=== PATIENT | male | born 1990 | race Caucasian/White ===

== ENCOUNTER 2018-04-04 08:29 | Emergency (ER) | payer SELFPAY ==
[2018-04-04] MEDS ORDERED: MECLIZINE HCL 25 MG TABLET PO ONE (09:05)
[2018-04-04] MEDS ORDERED: NORMAL SALINE 1000 ML 1,000 ML IV ONE (09:05)
[2018-04-04 10:33] LABS: ABSOLUTE BASOPHILS # (AUTO) 0.1 10^3/uL (0.0-0.2); ABSOLUTE EOSINOPHILS # (AUTO) 0.1 10^3/uL (0.0-0.6); ABSOLUTE LYMPHOCYTES (AUTO) 0.7 10^3/uL (0.5-4.7); ABSOLUTE MONOCYTES (AUTO) 0.6 10^3/uL (0.1-1.4); ABSOLUTE NEUT (AUTO) 5.2 10^3/uL (1.7-8.2); BASOPHILS % (AUTO) 1.9 % (0-2); HEMATOCRIT 41.4 % (37.9-51.0); HEMOGLOBIN 14.6 g/dL (13.5-17.0); LYMPHOCYTES % (AUTO) 10.8 % (13-45); MEAN CORPUSCULAR HEMOGLOBIN 36.6 pg (27.0-33.4); MEAN CORPUSCULAR HGB CONC 35.3 g/dL (32.0-36.0); MEAN CORPUSCULAR VOLUME 104 fl (80-97); MONOCYTES % (AUTO) 8.4 % (3-13); PLATELET COUNT 213 10^3/uL (150-450); RED BLOOD COUNT 3.99 10^6/uL (4.35-5.55); RED CELL DISTRIBUTION WIDTH 13.4 % (11.5-14.0); SEGMENTED NEUTROPHILS % (AUTO) 77.9 % (42-78); TOTAL CELLS COUNTED % (AUTO) 100 %; WHITE BLOOD COUNT 6.7 10^3/uL (4.0-10.5)
[2018-04-04 10:39] LABS: ALANINE AMINOTRANSFERASE 44 U/L (21-72); ALBUMIN 4.6 g/dL (3.5-5.0); ALKALINE PHOSPHATASE 82 U/L (38-126); ANION GAP 13 (5-19); ASPARTATE AMINO TRANSFERASE 60 U/L (17-59); BILIRUBIN,DIRECT 0.2 mg/dL (0.0-0.4); BILIRUBIN,TOTAL 0.5 mg/dL (0.2-1.3); BLOOD UREA NITROGEN 7 mg/dL (7-20); CALCIUM 9.8 mg/dL (8.4-10.2); CARBON DIOXIDE 29 mmol/L (22-30); CHLORIDE 100 mmol/L (98-107); GLUCOSE 92 mg/dL (75-110); LIPASE 101.8 U/L (23-300); TOTAL PROTEIN 7.7 g/dL (6.3-8.2)
--- NOTE | 2018-04-04 12:25 | ER Document Report ---
ED General - General Chief Complaint: Dizziness Stated Complaint: DIZZY Time Seen by Provider: 04/04/18 08:46 Mode of Arrival: Ambulatory Information source: Patient, Relative TRAVEL OUTSIDE OF THE [place] IN LAST 30 DAYS: No - HPI Patient complains to provider of: Dizziness Onset: Other - 27-year-old male who presents for evaluation of lightheadedness and nausea in the setting of having abused kratom over the last several weeks in addition to recently developing nausea and vomiting. Has had vertigo in the past, nothing is seemed to make his vertigo any better or worse it seems to be the worst in the morning when he wakes up. Previously he had been on meclizine for but is not been able to obtain any this time to try and see if it would help. He is throwing up 3-4 times daily for the last 3 days. - Related Data Allergies/Adverse Reactions: No Known Allergies Allergy (Verified 04/04/18 08:31) Past Medical History - General Information source: Patient - Social History Smoking Status: Current Every Day Smoker Frequency of alcohol use: Social Drug Abuse: Marijuana Family History: Reviewed & Not Pertinent Patient has suicidal ideation: No Patient has homicidal ideation: No Renal/ Medical History: Denies: Hx Peritoneal Dialysis Past Surgical History: Reports: Hx Oral Surgery - Immunizations Hx Diphtheria, Pertussis, Tetanus Vaccination: Yes Review of Systems - Review of Systems -: Yes All other systems reviewed and negative Physical Exam - Vital signs Vitals: Temp Pulse Resp BP Pulse Ox 98.8 F 94 16 154/92 H 97 04/04/18 08:33 04/04/18 08:33 04/04/18 08:33 04/04/18 08:33 04/04/18 08:33 - General General appearance: Appears well In distress: None - HEENT Head: Normocephalic Eyes: Normal Conjunctiva: Normal Cornea: Normal Extraocular movements intact: Yes Eyelashes: Normal Pupils: PERRL - Respiratory Respiratory status: No respiratory distress Chest status: Nontender Breath sounds: Normal Chest palpation: Normal - Cardiovascular Rhythm: Regular Heart sounds: Normal auscultation Murmur: No - Abdominal Inspection: Normal Distension: No distension Tenderness: Nontender - Back Back: Normal - Extremities General upper extremity: Normal inspection, Nontender, Normal strength, Normal temperature General lower extremity: Normal inspection, Nontender, Normal strength, Normal temperature - Neurological Neuro grossly intact: Yes Cognition: Normal Orientation: AAOx4 [place] Coma Scale Eye Opening: Spontaneous Alex Coma Scale Verbal: Oriented Alex Coma Scale Motor: Obeys Commands [place] Coma Scale Total: 15 Speech: Normal Cranial nerves: Normal Cerebellar coordination: Normal Motor strength normal: LUE, RUE, LLE, RLE Notes: Negative Erick-Hallpike - Psychological Associated symptoms: Normal affect Course - Re-evaluation Re-evalutation: 04/06/18 18:56 27-year-old male with a history of vertigo in the past she is abusing kratom tea. He has symptoms consistent with likely vertigo, he responded well to meclizine. He does have a benign neurologic examination, he was able to tolerate p.o. in the emergency department, given his well response to conservative treatment believe this likely represents a simple vertigo, will give symptomatic care and return precautions encouraged cessation of the use of illicit substances including kratom tea. He was discharged with return precautions ambulatory without assistance in the care of his . - Vital Signs Vital signs: Temp Pulse Resp BP Pulse Ox 98.8 F 94 15 132/83 H 95 04/04/18 08:33 04/04/18 08:33 04/04/18 12:51 04/04/18 12:51 04/04/18 12:51 - Laboratory Result Diagrams: 04/04/18 10:05 04/04/18 10:05 Laboratory results interpreted by me: 04/04/18 04/04/18 10:05 10:05 RBC 3.99 L MCV 104 H MCH 36.6 H Lymphocytes % 10.8 L AST 60 H Discharge - Discharge Clinical Impression: Acute severe vertigo Nausea and vomiting Qualifiers: Vomiting type: unspecified Vomiting Intractability: non-intractable Qualified Code(s): R11.2 - Nausea with vomiting, unspecified Condition: Good Disposition: HOME, SELF-CARE Instructions: Antinausea Medication ([facility]), Dizziness ([facility]), Meclizine ([facility]), Vertigo ([facility]) Additional Instructions: Your seen today for your vomiting and vertigo. He had evaluation including physical exam as well as blood work, your blood work is reassuring today, there is no abnormalities with your electrolytes, there is no abnormalities with your kidney function, your liver function, or markers for infection. Use the meclizine prescribed to you as needed. Make sure you are drinking lots of fluids to try and ensure you do not become dehydrated. In case you have worsening numbness weakness fevers or chills return to the emergency room as it may be a more serious condition. Prescriptions: Meclizine HCl 25 mg PO BID PRN #30 tab.chew PRN Reason:
[2018-04-04 12:55] VITALS: BP 132/83
== END 2018-04-04 13:01 | disposition home or self-care (01) ==
LOC: ER 08:29
DX: R42 Dizziness and giddiness (principal); R11.2 Nausea with vomiting, unspecified; F17.200 Nicotine dependence, unspecified, uncomplicated
CPT/HCPCS: 99284; 96360; 36415; 83690; 85025; 80053; J7030

== ENCOUNTER 2018-04-19 15:37 | Emergency (ER) | payer SELFPAY ==
[2018-04-19 15:41] VITALS: BP 134/90
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
[2018-04-19] MEDS ORDERED: IBUPROFEN 400 MG TABLET PO ONE (16:52)
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
[2018-04-19] MEDS ORDERED: LIDOCAINE 4%/TETRACAINE 0.5%/EPI 0.18% 5 ML TOPICAL SOLN TOP ONE (17:54)
== END 2018-04-19 18:36 | disposition home or self-care (01) ==
LOC: ER 15:37
DX: S63.501A Unspecified sprain of right wrist, initial encounter (principal); S43.401A Unspecified sprain of right shoulder joint, initial encounter; S09.90XA Unspecified injury of head, initial encounter; S01.01XA Laceration without foreign body of scalp, initial encounter; R68.84 Jaw pain; Y04.0XXA Assault by unarmed brawl or fight, initial encounter; F17.200 Nicotine dependence, unspecified, uncomplicated
CPT/HCPCS: 99284; 73030; 73110; 70450; 70486; 72125; 12001; L3908; J3490 ×2

== ENCOUNTER 2018-09-17 15:56 | Emergency (ER) | payer SELFPAY ==
[2018-09-17] MEDS ORDERED: FENTANYL CITRATE INJ/PF 100 MCG/2 ML AMPUL IM ONE (16:57)
--- NOTE | 2018-09-17 16:57 | ER Document Report ---
ED General <JUSTIN SHEA - Last Filed: 09/17/18 18:53> - General TRAVEL OUTSIDE OF THE [place] IN LAST 30 DAYS: No <FARZANEH FONTAINE - Last Filed: 09/17/18 22:17> - General Chief Complaint: Laceration Stated Complaint: ARM LACERATION Time Seen by Provider: 09/17/18 16:46 Primary Care Provider: SHEYLA GUERRERO MD [ACTIVE STAFF] - Follow up in 1 week (primary care. ) Notes: Patient is a 27-year-old male, previously healthy that presents to the emergency department for chief complaint of right arm lacerations. Patient states that he was installing a window, and states he became "aggressive with it" and ended up cutting his arm in multiple places on his forearm, on the glass. He rates his pain currently as a 9 out of 10 describes as a constant sharp and aching sensation in the forearm. He reports being up-to-date with his tetanus within the last 5 years. He denies any weakness in his hand or distal to his injury. Denies any other injuries, denies fall or head injury. Past Medical History: Denies chronic medical conditions Past Surgical History: Denies major surgical history Social History: Admits to smoking cigarettes, and occasional alcohol use, denies illicit drug use. Family History: Reviewed and noncontributory for presenting illness Allergies: Reviewed, see documented allergy list. REVIEW OF SYSTEMS: Other than noted above, the 12 point review of systems was reviewed with the patient and were negative, all pertinent findings are included in the HPI. PHYSICAL EXAMINATION: Vital signs reviewed, nursing noted reviewed. GENERAL: Patient appears rather uncomfortable, and in pain secondary to his injury HEAD: Atraumatic, normocephalic. EYES: Eyes appear normal, sclera anicteric, conjunctiva are normal. ENT: Moist mucous membranes. NECK: Normal range of motion, supple without lymphadenopathy LUNGS: Breath sounds clear to auscultation bilaterally and equal. No wheezes rales or rhonchi. HEART: Regular rate and rhythm without murmurs EXTREMITIES: The right upper extremity, has multiple lacerations noted, over the forearm, one measuring approximately 5 cm in length, that is open, with exposed fascia, another is more chevron in shape, measuring approximately 3 cm and then the third seem to be more superficial with chevron shaped, was approximately 2- 1/2 cm in length. There is slight oozing of blood, no pulsatile bleeding. Tendon function was intact distally with flexion and extension of the wrist, and extension and flexion of all digits. Cap refill less than 3 seconds in all digits. The rest the patient's extremity exam is grossly unremarkable. No foreign bodies were appreciated on exam. NEUROLOGICAL: No focal neurological deficits. Moves all extremities spontaneously Motor and sensory grossly intact on exam. PSYCH: Normal mood, normal affect. SKIN: Warm, Dry, normal turgor, (FARZANEH FONTAINE) - Related Data Allergies/Adverse Reactions: No Known Allergies Allergy (Verified 04/04/18 08:31) Past Medical History - Social History Smoking Status: Unknown if Ever Smoked Family History: Reviewed & Not Pertinent Patient has suicidal ideation: No Patient has homicidal ideation: No Renal/ Medical History: Denies: Hx Peritoneal Dialysis Past Surgical History: Reports: Hx Oral Surgery - Immunizations Hx Diphtheria, Pertussis, Tetanus Vaccination: Yes <FARZANEH FONTAINE - Last Filed: 09/17/18 22:17> - Vital signs Vitals: Temp Pulse Resp BP Pulse Ox 98.6 F 101 H 16 127/83 H 98 09/17/18 15:59 09/17/18 15:59 09/17/18 15:59 09/17/18 15:59 09/17/18 15:59 Course <FARZANEH FONTAINE - Last Filed: 09/17/18 22:17> - Re-evaluation Re-evalutation: Patient seen and examined vital signs reviewed. Patient was evaluated and treated as appropriate for the patient's presenting symptoms and complaint, with consideration of any critical or life threatening conditions that may be associated with their obtained history and exam as noted above. Patient was treated with IM fentanyl 100 mcg for pain, and wounds were repaired as noted The patient was re-evaluated and was stable and much improved Evaluation was most consistent with multiple lacerations to the left upper extremity. Plan of care was discussed with the patient at this point, after careful consideration I feel that that patient can be discharged from the emergency department, the patient was educated treatments and reasons to return to the emergency department based on their presumed diagnosis as noted above, they were advised to followup with a primary care physician in 2-3 days. Patient was agreeable to plan of care. *Note is created using voice recognition software and may contain spelling, syntax or grammatical errors. Forearm X-Ray 09/17/18 16:58 IMPRESSION: 1. Several focal areas of soft tissue injury and amputation of skin along the volar aspect of the proximal- mid forearm. 2. No acute osseous findings. (FARZANEH FONTAINE) - Vital Signs Vital signs: Temp Pulse Resp BP Pulse Ox 98.2 F 96 16 127/81 H 98 09/17/18 19:05 09/17/18 19:05 09/17/18 15:59 09/17/18 19:05 09/17/18 19:05 Procedures - Laceration/Wound Repair Right Distal Arm Time completed: 18:53 Wound length (cm): 5 - cm, 3cm, 2cm, 2cm- 4 lacerations to right forearm Wound's Depth, Shape: Superficial, Linear, Irregular Laceration pre-procedure: Betadine prep applied, Chloraprep applied, Shur-Clens applied Anesthetic type: 1% Lidocaine w/epi Volume Anesthetic (mLs): 8 - mL Wound explored: Clean, No foreign body removed Irrigated w/ Saline (mLs): 1,200 - mL Wound Debrided: Minimal Wound Repaired With: Sutures Suture Size/Type: 4:0, Prolene Number of Sutures: 29 Deep Layer Suture Size/Type: 4:0, Chromic Number Deep Layer Sutures: 15 Post-procedure wound care: Sterile dressing applied <JUSTIN SHEA - Last Filed: 09/17/18 18:53> - Laceration/Wound Repair Right Distal Arm Notes: 09/17/18 18:55 Patient gave verbal consent for suture repair. high Pressure irrigation with 100mL per cm of laceration. No foreign body seen in exploration of wound. wound well approximated with sutures. patient tolerated procedure without incident. Discussed with patient that he does need to have sutures removed within 7 to 10 days wound recheck in 24 to 48 hours. Patient verbalized understanding of this plan of care and agree with plan of care. (JUSTIN SHEA) Discharge <JUSTIN SHEA - Last Filed: 09/17/18 18:53> <FARZANEH FONTAINE - Last Filed: 09/17/18 22:17> - Discharge Clinical Impression: Lacerations of multiple sites of right arm Qualifiers: Encounter type: initial encounter Qualified Code(s): S41.111A - Laceration without foreign body of right upper arm, initial encounter Condition: Stable Disposition: HOME, SELF-CARE Instructions: Laceration Care (OM) Additional Instructions: Keep your wounds clean and dry, you can wash them with soap and water, and pat dry, do not scrub the area, monitor for signs of infection such as pus drainage, redness, or streaking up your arm. Please return to the emergency department in 8-10 days to have your sutures removed. Referrals: SHEYLA GUERRERO MD [ACTIVE STAFF] - Follow up in 1 week (primary care. )
[2018-09-17] MEDS ORDERED: LIDOCAINE 1%/EPINEPHRINE INJ 20 ML VIAL INJ ONE (16:58)
--- NOTE | 2018-09-17 17:22 | RADIOLOGY REPORT (SQ) ---
EXAM DESCRIPTION: FOREARM RIGHT COMPLETED DATE/TIME: 09/17/2018 5:10 pm REASON FOR STUDY: laceration from glass to forearm COMPARISON: None. NUMBER OF VIEWS: Two views. TECHNIQUE: Two radiographic images acquired of the right forearm, including elbow and wrist in at le ast one projection. LIMITATIONS: None. FINDINGS: MINERALIZATION: Normal. BONES: No acute fracture. No worrisome bone lesions. SOFT TISSUES: Several focal areas of soft tissue injury and amputation of skin along the volar aspec t of the proximal- mid right forearm. No opaque foreign bodies. OTHER: No other significant finding. IMPRESSION: 1. Several focal areas of soft tissue injury and amputation of skin along the volar asp ect of the proximal- mid forearm. 2. No acute osseous findings. TECHNICAL DOCUMENTATION: JOB ID: [id number]- All Rights Reserved Reading location - IP/workstation name: [email or web address]
[2018-09-17 19:30] VITALS: BP 127/81
== END 2018-09-17 19:30 | disposition home or self-care (01) ==
LOC: ER 15:56
DX: S41.111A Laceration without foreign body of right upper arm, initial encounter (principal); W25.XXXA Contact with sharp glass, initial encounter; Y99.0 Civilian activity done for income or pay
CPT/HCPCS: 73090; 12034; J3010; J3490; 96374; 99283